=== PATIENT | male | born 1935 | race Caucasian/White ===

== ENCOUNTER 2018-01-05 14:06 | Day surgery (SDC) | payer BC ==
[~2018-01-05] VITALS: Ht 182.9 cm; Wt 85.8 kg
[~2018-01-05 14:06] MED LIST: AMLO10 PO; ASPI81CH PO; ATEN50 PO; CIPR500 PO; CYAN100 PO; DEXT5ER PO; FISH1000 PO; HYDR1TAB94 PO; LEVSOD100 PO; LEVSOD25 PO; LEVSOD50 PO; LISHYD1012 PO; LISI20 PO; NEBI5 PO; OXYC10TA19 PO; SENN187 PO; SERT100 PO; SIMV40 PO; TAMS.4ER PO
[2018-01-05] MEDS ORDERED: ADULT ASPIRIN81 MG (14:43)
== END 2018-01-05 16:39 | disposition home or self-care (01) ==
LOC: ORSCSDS 14:06
PROVIDERS: Internal Medicine Gastroenterology
PROC: 0DBN8ZX Excision of Sigmoid Colon, Via Natural or Artificial Opening Endoscopic, Diagnostic (ICD-10-PCS; principal; 2018-01-05 15:15)
PROC: 0DBK8ZX Excision of Ascending Colon, Via Natural or Artificial Opening Endoscopic, Diagnostic (ICD-10-PCS; principal; 2018-01-05 15:15)
DX: Z12.11 Encounter for screening for malignant neoplasm of colon (principal); D12.2 Benign neoplasm of ascending colon; D12.5 Benign neoplasm of sigmoid colon; K57.30 Diverticulosis of large intestine without perforation or abscess without bleeding; Z86.010 Personal history of colon polyps; I10 Essential (primary) hypertension; E78.5 Hyperlipidemia, unspecified; Z79.82 Long term (current) use of aspirin; Z79.899 Other long term (current) drug therapy
CPT/HCPCS: J1980; J7120

== ENCOUNTER 2020-06-16 15:41 | Inpatient (IN) | payer OTHER, BC, MEDICARE ==
[~2020-06-16] VITALS: Ht 182.9 cm; Wt 72.8 kg
[~2020-06-16 15:41] MED LIST changes: -AMLO10 PO; -LEVSOD100 PO; -NEBI5 PO; -SERT100 PO; -SIMV40 PO
[2020-06-16 16:30] LABS: BASOPHILS ABSOLUTE AUTO 0.05 K/mm3 (0.00-0.23); BASOPHILS PERCENT AUTO 0 % (0-2); EOSINOPHILS ABSOLUTE AUTO 0.06 K/mm3 (0.00-0.68); EOSINOPHILS PERCENT AUTO 1 % (0-6); Hematocrit 41.7 % (37.0-53.0); IMMATURE GRAN ABSOLUTE AUTO 0.07 K/mm3 (0.00-0.10); IMMATURE GRAN PERCENT AUTO 1 % (0-1); LYMPHOCYTES PERCENT AUTO 6 % (21-46); MONOCYTES ABSOLUTE AUTO 0.51 K/mm3 (0.16-1.47); MONOCYTES PERCENT AUTO 5 % (4-13); Mean Corpuscular HGB 32.4 pg (26.0-34.0); Mean Corpuscular HGB Conc 33.6 g/dL (31.5-36.5); Mean Corpuscular Volume 97 fL (80-100); Mean Platelet Volume 9.9 fL (9.1-12.4); NEUTROPHILS ABSOLUTE AUTO 10.06 K/mm3 (1.96-9.15); NEUTROPHILS PERCENT AUTO 88 % (41-73); Platelet Count 198 K/mm3 (150-400); RDW Coefficient Variation 12.5 % (11.7-14.2); RDW Standard Deviation 44.9 fL (35.1-46.3); Red Blood Cell Count 4.32 M/mm3 (4.30-5.90); White Blood Cell Count 11.45 K/mm3 (4.00-11.30)
[2020-06-16] MEDS ORDERED: EUTHYROX50 MCG PO (16:38)
[2020-06-16] MEDS ORDERED: AMLO5 PO (16:38)
[2020-06-16] MEDS ORDERED: Lisinopril-Hct1 EAC4 PO (16:38)
[2020-06-16] MEDS ORDERED: Lamictal150 MG PO (16:38)
[2020-06-16] MEDS ORDERED: NEBI5 PO (16:39)
[2020-06-16] MEDS ORDERED: DONEPEZIL HCL5 M2 PO (16:39)
[2020-06-16] MEDS ORDERED: SIMV40 PO (16:39)
[2020-06-16] MEDS ORDERED: CYAN1000I IM (16:40)
[2020-06-16 16:59] LABS: Alanine Aminotransfer (ALT/SGP 18 U/L (12-78); Albumin, Blood 3.8 g/dL (3.4-5.0); Albumin/Globulin Ratio 1.2 (0.8-1.8); Alk Phos 63 U/L (50-136); Anion Gap 4 mmol/L (6-16); Aspartate Aminotrans (AST/SGOT 17 U/L (12-37); Bilirubin, Total 0.5 mg/dL (0.1-1.0); Blood Urea Nitrogen 27 mg/dL (8-24); CO2, Blood 29 mmol/L (21-32); Calcium, Blood 8.7 mg/dL (8.5-10.1); Chloride, Blood 104 mmol/L (98-108); Creatinine, Blood 1.23 mg/dL (0.60-1.20); Ethanol (Alcohol), Blood, Med <3 mg/dL; Globulin, Blood 3.2 g/dL (2.2-4.0); Glomerular Filtration Rate 60 (60-); Glucose, Blood 115 mg/dL (70-99); Potassium, Blood 4.4 mmol/L (3.5-5.5); Salicylate <1.7 mg/dL (2.8-20.0); Sodium, Blood 137 mmol/L (136-145); Troponin I <0.015 ng/mL (0.000-0.040)
[2020-06-16 17:05] LABS: Acetaminophen, Random <2.0 ug/mL (10.0-30.0)
[2020-06-16] MEDS ORDERED: MELA3 PO (17:20)
[2020-06-16] MEDS ORDERED: ASPIR 8181 M1 PO (17:21)
[2020-06-16] MEDS ORDERED: Colace250 MG PO (17:22)
[2020-06-16 20:24] LABS: Source, Urine Voided
[2020-06-16 20:26] LABS: Blood, Urine 1+ (Neg); Glucose Qualitative, Urine Neg (Neg); Ketones, Urine 1+ (Neg); Leukocyte Esterase, Urine Neg (Neg); Nitrite, Urine Neg (Neg); Protein, Urine Neg (Neg); Urobilinogen, Urine NORM (Normal)
[2020-06-16 20:29] LABS: Bilirubin, Urine 1+ (Neg)
[2020-06-16 20:33] LABS: Appearance, Urine Clear (Clear); Color, Urine Yellow (P-Yellow)
[2020-06-16 20:34] LABS: Bacteria Few /hpf; White Blood Cells, Urine 0-2 /hpf (0-5)
[2020-06-16 20:35] LABS: Squamous Epithelial Cells Rare /hpf (Few)
[2020-06-16 20:56] LABS: U Amphetamine Screen Not Detected; U Barbituate Screen Not Detected; U Benzodiazapine Screen Not Detected; U Buprenorphine Screen Not Detected; U Cannabinoids Screen Not Detected; U Cocaine Screen Not Detected; U Methadone Screen Not Detected; U Methamphetamine Screen Not Detected; U Opiates Screen Not Detected; U Oxycodone Screen Not Detected; U Phencyclidine Screen Not Detected; U Propoxyphene Screen Not Detected
[2020-06-16 22:41] LABS: Base Excess Venous 6.7 mmol/L; Bicarbonate Venous 28.9 mmol/L (24.0-30.0); PCO2 Venous 47.3 mmHg (38-42); PO2 Venous 36.9 mmHg (38-42); pH Blood Venous 7.43 (7.34-7.37)
[2020-06-16 22:54] LABS: Anion Gap 5 mmol/L (6-16); Blood Urea Nitrogen 29 mg/dL (8-24); Bun/Creatinine Ratio 27.1 (12.0-20.0); CO2, Blood 31 mmol/L (21-32); Calcium, Blood 8.5 mg/dL (8.5-10.1); Chloride, Blood 103 mmol/L (98-108); Creatinine, Blood 1.07 mg/dL (0.60-1.20); Glomerular Filtration Rate >60 (60-); Glucose, Blood 116 mg/dL (70-99); Potassium, Blood 3.7 mmol/L (3.5-5.5); Sodium, Blood 139 mmol/L (136-145)
[2020-06-17 04:10] LABS: BASOPHILS ABSOLUTE AUTO 0.03 K/mm3 (0.00-0.23); BASOPHILS PERCENT AUTO 0 % (0-2); EOSINOPHILS ABSOLUTE AUTO 0.03 K/mm3 (0.00-0.68); EOSINOPHILS PERCENT AUTO 0 % (0-6); Hematocrit 38.6 % (37.0-53.0); Hemoglobin 13.1 g/dL (13.5-17.5); IMMATURE GRAN ABSOLUTE AUTO 0.07 K/mm3 (0.00-0.10); IMMATURE GRAN PERCENT AUTO 1 % (0-1); LYMPHOCYTES ABSOLUTE AUTO 1.35 K/mm3 (0.84-5.20); LYMPHOCYTES PERCENT AUTO 10 % (21-46); MONOCYTES ABSOLUTE AUTO 1.32 K/mm3 (0.16-1.47); MONOCYTES PERCENT AUTO 10 % (4-13); Mean Corpuscular HGB 31.8 pg (26.0-34.0); Mean Corpuscular HGB Conc 33.9 g/dL (31.5-36.5); Mean Corpuscular Volume 94 fL (80-100); Mean Platelet Volume 10.1 fL (9.1-12.4); NEUTROPHILS ABSOLUTE AUTO 10.66 K/mm3 (1.96-9.15); NEUTROPHILS PERCENT AUTO 79 % (41-73); Platelet Count 211 K/mm3 (150-400); RDW Coefficient Variation 12.5 % (11.7-14.2); RDW Standard Deviation 43.3 fL (35.1-46.3); Red Blood Cell Count 4.12 M/mm3 (4.30-5.90); White Blood Cell Count 13.46 K/mm3 (4.00-11.30)
[2020-06-17 04:27] LABS: Anion Gap 5 mmol/L (6-16); Blood Urea Nitrogen 28 mg/dL (8-24); Bun/Creatinine Ratio 28.3 (12.0-20.0); CO2, Blood 34 mmol/L (21-32); Calcium, Blood 8.3 mg/dL (8.5-10.1); Chloride, Blood 99 mmol/L (98-108); Creatinine, Blood 0.99 mg/dL (0.60-1.20); Glomerular Filtration Rate >60 (60-); Glucose, Blood 107 mg/dL (70-99); Potassium, Blood 3.3 mmol/L (3.5-5.5); Sodium, Blood 138 mmol/L (136-145)
--- NOTE | 2020-06-17 06:00 | NUR ---
PT WAS ADMITTED TO ICU 15 W INTENTIONAL BB OVERDOSE. PT ARRIVES AWAKE, ABLE TO ANSWER QUESTIONS. PT HAS SOME CONFUSION, PT KNOWN TO HAVE SOME DEMENTIA, WAS RECENTLY DX W PARKINSON'S. PT EXPRESSES SOME REGRET, STATES IT WAS "A STUPID THING TO DO, I REALLY MESSED UP. WHY DIDN'T IT WORK?" PT ALSO HAS MOMENTS OF RAMBLING CONVERSATION, DETAILING YESTERDAY'S EVENTS MIXED WO OTHER PERSONAL HISTORY. PT CLEARLY EXPRESSES WHAT HE FEELS IS HIS FUTURE PROGRESSION W PARKINSON'S AND THAT HE IS DEPRESSED. PT IS NOT ALWAYS CONSISTENT W RESPONSES & WILL DEFER HEALTH HISTORY WHEN CAN BE PRESENT-"SHE KNOWS ALL THAT STUFF". STATUS UPDATE TO AUDELIA LAGUNA AT [facility] AFTER UPDATE TO POISON CONTROL FOR MANAGEMENT. CONT W D5W W 150MEQ NAHCO3 AT 200CC/H, GLUCAGON 4MG/HR. PT HR HAS RANGED 38-42 ALL NOC, SB W BBB. BP HAS BEEN STABLE. PT RHYTHM IS SAME BASELINE (2016 EKG) BUT SLOWER (OF COURSE) DISCUSSED GIVING ATROPINE, BUT SINCE BP IS STABLE, CONT TO MONITOR. RE-EVAL W POISON CONTROL THIS AM, AND CONT TX PLAN. PT HAS BEED ABLE TO SIP CRANBERRY JUICE (PREFERENCE) WO ANY DIFFICULTY. VSS, PT CONT COOPERATIVE AND ALERT, OCCAS FORGETFUL, HAS TO BE REMINDED TO STAY IN BED WHEN NEEDS TO VOID. SITTER FOR 1:1 OBSERVATION AT DOORWAY DIRECT SIGHT. PT CONT HIGH RISK SUICIDE. CONSULT TODAY W DR SPENCER. REPORT TO DAYSHIFT.
--- NOTE | 2020-06-17 07:18 | NUR ---
Delayed entry for ethics consultation service provided on 06/16/20. Clarification requested by the admitting SLITTER OPERATOR regarding the legal propriety of implementing aggressive measures of care for a principal who is suffering medical decompensation caused by an act of intentional self-harm, who also possesses a contraindicating advance direct instrument. Resolved: it is hospital practice to temporarily suspend care planning devices in instances of suicide, administer restorative and stabilizing treatments, and then once the effects of the action of self-harm have been adequately resolved, and all related clinical objectives satisfied, the advance directive is to be fully resumed and submitted to. Thank you for this consult. Stanislaw Aquino Th.D.
--- NOTE | 2020-06-17 09:50 | NUR ---
SHEYLA CARRION HERE TO SEE PATIENT.
--- NOTE | 2020-06-17 11:34 | NUR ---
LATE AM NOTE. PT INITALLY ON NIMBEX GTT AND TITRATED DOWN AND OFF PER DR SIMMONS ORDER. PT CHANGED TO PRECEDEX GTT AND LATER HR AND BP DROPPED REQUIRING LEVOPHED GTT NOTED. PT SEDATE AND TOLERTING LOWER DOSE PRECEDEX GTT AND PROPOFOL AT 40 MCG. PT NOTED TO HAVE COPIOUS SECRAETIONS OF WHITE, SL LOZOYA AND THIN SECREATIONS. PEEP INC TO 12 AND FIO2 REMAINS AT 75%. WILL FOLLOW.
--- NOTE | 2020-06-17 12:57 | NUR ---
Safety Plan and interview completed at 1000 today. Patient is an 84 year old male. He was talkative and was not interested in the details of thoughts and feelings that led to the OD. He stated "it was stupid and uncaring" for others. He reports he was recently diagnosed with Parkinsonsm his dog dies, and he and of 30 years were having relationship problems. Upon further questioning his dog about a year ago. 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 This is his 2nd marriage. He admits he is not easy to live with, and that is why 1st him. He loves his [place] dogs. He overdosed in on his 's medications in the garge where his 's brother by suicide. He sees Advanced Practice Nurse Maybe by telepsychh from his home. He could not remember the meds she placed him on, and admitted he mises them all up in one bottle.Discussed giving meds to , and keeping pills separate. Patient reports he would not use a gun, as he has seen the results, and he would never shoot himself. Pt. likes to tell jokes, and has a quick wit and sense of humor. He report stopped driving on his own after he noticed others "hoonking at me and giving me the finger". He began having difficulty walking and stumbling, plus tremors, that led him to see his doctor. He reports his doctor has arranged for further testing for the Parkinsons. He is a [employer] graduate and originally from [place]. He reports he has no intention of harming himself again, and this is the first suicide attempt. Yajaira Kevin M.Ed., [facility],
--- NOTE | 2020-06-17 13:26 | NUR ---
LATE AM ENTRY. PT IS EASILY AROUSED AND VERBAL. SOME MILD TO MOD. MENTAL INCONSISTANCES BUT IS ALERT AND TALKITIVE, SEE CONTRIBUTING HX. PT ABLE TO VOID PER URINAL BUT IS INCONT. AT TIMES. PT ABLE TO FEED SELF BUT IS INCONSISTANT WITH PERSONAL CARE AND MESSY. PT DENIES ANY CURRENT S.I. AND IS VERBAL ABOUT WHAT HE HAS DONE.
--- NOTE | 2020-06-17 13:50 | NUR ---
GLUCAGON AND SOD. BICARB GTT'S D/C. EKG F/U 1ONE HOUR POST D/C. WILL REPORT FOR RECOMENDATION POST EKG.
--- NOTE | 2020-06-17 14:27 | NUR ---
F/U 12-LEAD EKG REPORTED TO POISON CONTROL WITH VS. NO NEW ORDERS OR RECOMMENDATINS AT THIS TIME.
--- NOTE | 2020-06-17 17:28 | NUR ---
PT WAS IN EARLIER TO VISIT. PT REMAINS QUITE CHATTIE WITH STAFF. VSS WITH HR REMAINING IN 40-45 RANGE. PT HAS BEEN VOIDING THIS DAY W/O DISTRESS. PT CONT TO HAVE SITTER DR PRUITT IN TO SEE PT SOON.
--- NOTE | 2020-06-17 18:43 | NUR ---
REPORT AGAIN CALLED TO [facility]ENTER RE PT STATUS. VS, QRS, HR REPORTED AND PT IS A/O
--- NOTE | 2020-06-17 19:25 | NUR ---
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 When I got to room, he denied the request. He was very talkative, moving quickly from topic to topic. He admits that he wishes what he tried yesterday "had worked" and says he feels like "an idiot" for not taking more medication. Tony spoke about his tapdopm-mr-win's suicide. SHAVONNE did this in Tony's garage "a few months ago." Tony's found him. Tony appeared to enjoy companionship/conversation. He is not restoration "at all." Later, I met with his , Love, at bedside. Tony was sleepy and even more confused. She wants to know what POC is going forward. She is willing to consider placement "If Tony agrees to it." I will remain available.
[2020-06-18 04:19] LABS: Albumin, Blood 3.2 g/dL (3.4-5.0); Anion Gap 6 mmol/L (6-16); Blood Urea Nitrogen 23 mg/dL (8-24); Bun/Creatinine Ratio 18.3 (12.0-20.0); CO2, Blood 32 mmol/L (21-32); Calcium, Blood 8.8 mg/dL (8.5-10.1); Chloride, Blood 102 mmol/L (98-108); Creatinine, Blood 1.26 mg/dL (0.60-1.20); Glomerular Filtration Rate 58 (60-); Glucose, Blood 87 mg/dL (70-99); Phosphorus, Blood 3.1 mg/dL (2.5-4.9); Potassium, Blood 3.6 mmol/L (3.5-5.5); Sodium, Blood 140 mmol/L (136-145)
--- NOTE | 2020-06-18 04:31 | NUR ---
SHIFT SUMMARY PATIENT HAS SLEPT WELL TONIGHT. QRS READING ~ 0.14-0.16, QT ~ 0.52, SINUS JENNIFER WITH BUNDLE BRANCH BLOCK 38-45 BPM, BP STABLE. HAD AN OCASSIONAL LOW READING, USUALLY PATIENT WAS LYING WITH CUFF ARM UP, HAD TO WAKE A FEW TIMES TO RETAKE/ GET ACCURATE READING. NO C/O PAIN. ASSESSMENT IS CHARTED. WILL CONTINUE TO MONITOR.
--- NOTE | 2020-06-18 08:05 | NUR ---
Pt was assisted OOB to chair. He is talkative, and sitting up eating breakfast. Talking a lot about his , that she is angry with him, that she calls him stupid, that they spent 30 years trying to get together and now 30 years trying to get apart.
--- NOTE | 2020-06-18 13:06 | NUR ---
Dr. Trevizo was here to round on the patient earlier. She states that she will probably discharge the pt home today. Pt is up, sitting in chair by the window, took all of his EKG wires off, blood pressure cuff off and declines to have them on again, states that the doctor told him he was going home after the papers were signed.
--- NOTE | 2020-06-18 14:07 | NUR ---
This RN made a visit to pt today, included therapeutic listening as well as reviewing pt's advanced directive. He states he wishes he had not "been stupid and tried to off myself". He states he has "a great " and "lots of grandkids" to look forward to. He states he was feeling situationally low with the recent loss of his dog and his new diagnsosis of Parkinson's. Regarding his advanced directive; we reviewed a copy together, and he states he has not changed his mind on his DNR code status, as well as no feeding tube or ventilator. He is able to distinguish between this current visit as an isolated event. Discussed this with his RN, and copy of directived placed in chart for to review prior to discharge. He declined any information on Parkinson's group in [place] at this time.
--- NOTE | 2020-06-18 17:06 | NUR ---
The pt's central line was removed before discharge, and his arrived to take him home. Chaplain Cass Miranda visited with him as well. Discharge instructions were reveiwed with the pt and his at the bedside, and questions answered. PT was assisted with putting on his own clothes, and seated in wheelchair. Taken out to private vehicle driven by his for discharge.
--- NOTE | 2020-06-18 18:50 | NUR ---
Spiritual care note: Supportive visit provided to Don. He clearly enjoyed conversation and companionship. He was confused and sometimes contradicted previous statements. But he appeared relaxed and happy to be returning home. D/c this afternoon.
== END 2020-06-18 17:00 | disposition home or self-care (01) | DRG 918 ==
LOC: ER 15:41 → ICUW 16:59 → ERHOLD 16:59 → ICUW 20:40
PROVIDERS: Emergency Medicine; Internal Medicine; Nurse Practitioner Acute Care; ADMIT Internal Medicine
DX: T44.7X2A Poisoning by beta-adrenoreceptor antagonists, intentional self-harm, initial encounter (principal); F33.9 Major depressive disorder, recurrent, unspecified; N13.8 Other obstructive and reflux uropathy; N40.1 Benign prostatic hyperplasia with lower urinary tract symptoms; E11.9 Type 2 diabetes mellitus without complications; F01.50 Vascular dementia, unspecified severity, without behavioral disturbance, psychotic disturbance, mood disturbance, and anxiety; F43.10 Post-traumatic stress disorder, unspecified; G20 Parkinson's disease; E03.9 Hypothyroidism, unspecified; I10 Essential (primary) hypertension; E78.5 Hyperlipidemia, unspecified; F32.9 Major depressive disorder, single episode, unspecified; Z86.73 Personal history of transient ischemic attack (TIA), and cerebral infarction without residual deficits; Z79.82 Long term (current) use of aspirin
CPT/HCPCS: 71045; 80048; 80053; 80069; 81001; 82803; 82947; 84436; 84443; 84484; 85025; 93005; 93010; 96365; 96366; 96376; 99285-25; A9270; G0480; J1610; J1650; J2550; J3480; J7070

== ENCOUNTER → 2021-04-06 | Outpatient (CLI) | payer BC ==
[~2021-04-06] MED LIST changes: +AMLO5 PO; +ASPIR 8181 M1 PO; +CYAN1000I IM; +Colace250 MG PO; +DONEPEZIL HCL5 M2 PO; +EUTHYROX50 MCG PO; +Lamictal150 MG PO; +Lisinopril-Hct1 EAC4 PO; +MELA3 PO; +NEBI5 PO; +SIMV40 PO
== END | disposition home or self-care (01) ==
LOC: LAB 10:15 → LAB SHORT 10:15
DX: E87.8 Other disorders of electrolyte and fluid balance, not elsewhere classified (principal)
CPT/HCPCS: 81050